=== PATIENT | male | born 1970 | race Caucasian/White ===

== ENCOUNTER 2022-08-31 07:55 | Emergency (ER) | payer OTHER, SELFPAY ==
[2022-08-31 08:15] VITALS: BP 127/83; PULSE 91; RESP 20; TEMP 36.6; O2SAT 97; BMI 38.7
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
[2022-08-31] MEDS: Ibuprofen 800 MG TABLET PO (09:27)
== END 2022-08-31 09:33 | disposition home or self-care (01) ==
PROVIDERS: Emergency Provider Emergency Medicine
DX: S13.4XXA Sprain of ligaments of cervical spine, initial encounter (principal); R07.89 Other chest pain; V43.52XA Car driver injured in collision with other type car in traffic accident, initial encounter; Y93.9 Activity, unspecified; Y92.410 Unspecified street and highway as the place of occurrence of the external cause; Y99.9 Unspecified external cause status; Z79.899 Other long term (current) drug therapy
CPT/HCPCS: 99283